=== PATIENT | male | born 1935 | race Caucasian/White ===

== ENCOUNTER 2016-11-16 12:33 | Emergency (ER) | payer BC, MEDICARE ==
[~2016-11-16] VITALS: Ht 177.8 cm; Wt 106.4 kg
[~2016-11-16 12:33] MED LIST: ALFU1TAB10 PO; ALPR0.5T99 PO; ALTA1.256 PO; BUFF325T PO; CLON.5 PO; GLUCTAB PO; NEUR100C PO; REME30TA PO; ROSU20 PO; STOO100C PO
[2016-11-16 12:36] VITALS: BP 137/82; PULSE 78; RESP 16; TEMP 97.3; O2SAT 96
[2016-11-16] MEDS ORDERED: SODIUM CHLORIDE 0.9% FLUSH 5 ML FLUSH IVF PRN (13:00)
[2016-11-16] MEDS ORDERED: methylPREDNISolone SOD SUCC 125 MG/2 ML VIAL IVP ONE (13:00)
--- NOTE | 2016-11-16 13:02 | PD ---
HPI . Right ear pain. Chief Complaint: Respiratory Symptoms Time Seen by Provider: 12:46 Travel History International Travel<30 days: No Contact w/Intl Traveler<30days: No Traveled to known affect area: No History of Present Illness HPI The patient presents with a chief complaint of right ear pain. Patient reports cold symptoms for about a week. He has subsequently developed ear pain and was seen at urgent care 4 days ago. He was placed on amoxicillin. Despite this, his ear pain is getting worse rather than better. He is also complaining with rhinorrhea or throat and cough. He does have yellow sputum production. He feels very fatigued. He has not been running any fever. In addition to the amoxicillin, he has been taking Robitussin. PFSH Past Medical History Hx Anticoagulant Therapy: Yes (plaxix) Anxiety: Yes Cancer: No Cardiovascular Problems: Yes (htn on meds, has a pacemake, bypass 5 vessels) High Cholesterol: Yes Cerebrovascular Accident: Yes Coronary Artery Disease: Yes Diabetes: Yes (type 2) Diminished Hearing: No Endocrine: Yes GERD: Yes Genitourinary: Yes (HAS HX OF KIDNEY STONES) Hypertension: Yes Immune Disorder: No Kidney Stones: Yes Musculoskeletal: No Psychiatric: No Past Surgical History Appendectomy: Yes Cardiac Surgery: Yes (PACEMAKER 10/11) Coronary Artery Bypass Graft: Yes (5 VESSEL 12/12) Eye Surgery: Yes Pacemaker: Yes Tonsillectomy: Yes Social History Alcohol Use: Yes (SOCIALLY) Tobacco Use: Yes (ONE CIGAR A DAY) Substance Use: No Allergies-Medications (Allergen,Severity, Reaction): Coded Allergies: Demerol (Verified Adverse Reaction, Severe, "Shallow breathing", 11/16/16) Reported Meds & Prescriptions Reported Meds & Active Scripts Active Reported Tramadol (Tramadol HCl) 50 Mg Tab 50 Mg PO Q8H PRN Flonase Allergy Relief Nasal Mccarr (Fluticasone Nasal Mccarr) 50 Mcg/Act Mccarr 50 Mcg EACH NARE DAILY Tylenol Pm Extra Strength (Diphenhydramine-Acetaminophen) 25-500 Mg Tab 1 Tab PO HS Xanax (Alprazolam) 1 Mg Tab 1 Mg PO HS Zestril (Lisinopril) 10 Mg Tab 10 Mg PO DAILY Proscar (Finasteride) 5 Mg Tab 5 Mg PO DAILY Do not crush. Rapaflo (Silodosin) 8 Mg Cap 8 Mg PO DAILY Colace (Docusate Sodium) 100 Mg Cap 2 Cap PO DAILY Crestor (Rosuvastatin Calcium) 10 Mg Tab 10 Mg PO DAILY [Chucky Red] 1,000 Mg PO DIRECTED Glucophage (Metformin HCl) 500 Mg Tab 500 Mg PO BIDPC With meals Vitamin D (Cholecalciferol) 400 Unit/Ml Drops 400 Units PO DAILY Ecotrin Low Strength (Aspirin) 81 Mg Tabdr 81 Mg PO DAILY Plavix (Clopidogrel Bisulfate) 75 Mg Tab 75 Mg PO DAILY Review of Systems Except as stated in HPI: all other systems reviewed are Neg General / Constitutional: Positive: Other (fatigue), No: Fever, Chills HENT: Positive: Sore Throat, Rhinorrhea, Congestion, Earache Respiratory: Positive: Cough, Shortness of Breath, Wheezing, Other (yellow sputum) Physical Exam Narrative GENERAL: Healthy-appearing 81-year-old man who is in no acute distress. SKIN: Warm and dry. HEAD: Atraumatic. Normocephalic. EYES: Pupils equal and round. ENT: No nasal bleeding or discharge. Mucous membranes pink and moist. I cannot clearly see his right TM. I can see some redness. He has some mild pain with movement of the right auricle and compression of the right tragus. NECK: Trachea midline. No cervical lymphadenopathy palpated. CARDIOVASCULAR: Regular rate and rhythm. Heart sounds are normal. RESPIRATORY: No accessory muscle use. Lungs have good air movement throughout but diffuse expiratory wheezing. GASTROINTESTINAL: Abdomen soft, non-tender, nondistended. MUSCULOSKELETAL: No obvious deformities. No edema. NEUROLOGICAL: Awake and alert. No obvious cranial nerve deficits. Motor grossly within normal limits. Normal speech. PSYCHIATRIC: Appropriate mood and affect; insight and judgment normal. Data Data Last Documented VS Vital Signs Date Time Temp Pulse Resp B/P Pulse Ox O2 Delivery O2 Flow Rate FiO2 11/16/16 13:45 85 16 133/65 96 Room Air 11/16/16 12:36 97.3 Orders Complete Blood Count With Diff (11/16/16 12:54) Basic Metabolic Panel (Bmp) (11/16/16 12:54) B-Type Natriuretic Peptide (11/16/16 12:54) Troponin I (11/16/16 12:54) Iv Access Insert/Monitor (11/16/16 12:54) Chest, Single Ap (11/16/16 12:54) Sodium Chloride 0.9% Flush (Ns Flush) (11/16/16 13:00) Methylprednisolone So Succ Inj (Solumedr (11/16/16 13:00) Albuterol-Ipratropium Neb (Duoneb Neb) (11/16/16 13:00) Labs Laboratory Tests Test 11/16/16 13:40 White Blood Count 9.7 TH/MM3 Red Blood Count 4.89 MIL/MM3 Hemoglobin 14.9 GM/DL Hematocrit 44.6 % Mean Corpuscular Volume 91.1 FL Mean Corpuscular Hemoglobin 30.4 PG Mean Corpuscular Hemoglobin 33.4 % Concent Red Cell Distribution Width 12.4 % Platelet Count 243 TH/MM3 Mean Platelet Volume 7.5 FL Neutrophils (%) (Auto) 55.4 % Lymphocytes (%) (Auto) 34.6 % Monocytes (%) (Auto) 6.7 % Eosinophils (%) (Auto) 2.6 % Basophils (%) (Auto) 0.7 % Neutrophils # (Auto) 5.2 TH/MM3 Lymphocytes # (Auto) 3.4 TH/MM3 Monocytes # (Auto) 0.7 TH/MM3 Eosinophils # (Auto) 0.3 TH/MM3 Basophils # (Auto) 0.1 TH/MM3 CBC Comment DIFF FINAL Differential Comment Sodium Level 144 MEQ/L Potassium Level 4.0 MEQ/L Chloride Level 107 MEQ/L Carbon Dioxide Level 28.6 MEQ/L Anion Gap 8 MEQ/L Blood Urea Nitrogen 17 MG/DL Creatinine 1.20 MG/DL Estimat Glomerular Filtration 58 ML/MIN Rate Random Glucose 140 MG/DL Calcium Level 8.6 MG/DL [facility] Medical Decision Making Medical Screen Exam Complete: Yes Emergency Medical Condition: Yes Differential Diagnosis Differential diagnosis includes but is not limited to influenza, upper respiratory infection, bronchitis, pneumonia Narrative Course Patient presents for evaluation and treatment of cold symptoms including right ear pain. I will evaluate him to rule out a more serious cause for his symptoms such as pneumonia, CHF. Chest x-ray is negative for infiltrate. The chest x-ray was independently viewed by me. CBC is normal. Electrolytes are normal. Troponin is 0.02 and his BNP is 29. His respiratory symptoms have improved with steroids and nebs. Diagnosis Primary Impression: Bronchitis Additional Impression: Right otitis media Qualified Code: H66.91 - Right otitis media, unspecified chronicity, unspecified otitis media type Scripts Hydrocodone-Acetaminophen (Andrews)5-325 mg Tab1-2 Tab PO Q6H PRN (PAIN) #12 TAB Ref 0 Prov:Mia Barnhart MD 11/16/16 Pseudoephedrine-Guaifenesin (Mucinex D Maximum Strength)120-1,200 Mg Tab1 Tab PO BID PRN (congestion) #20 Prov:Mia Barnhart MD 11/16/16 Amoxicillin-Clavulanate (Augmentin)875-125 mg [id number] Mg PO BID #20 TAB Ref 0 not for use in CrCl <30 ml/min. Prov:Mia Barnhart MD 11/16/16 Prednisone (48) 10 mg tab Dose Pack 10 Mg [id number] Mg PO DIRECTED #1 DSPK Ref 0 Prov:Mia Barnhart MD 11/16/16 Disposition: 01 DISCHARGE HOME Condition: Stable Mia Barnhart MD Nov 16, 2016 13:02
[2016-11-16] MEDS: RESP: ALBUTEROL 2.5 MG/IPRATROPIUM 0.5 MG NEB (SCH) INH ×2 (13:14→13:16)
--- NOTE | 2016-11-16 13:19 | RADHPO ---
EXAM DATE/TIME: 11/16/2016 12:59 [facility] COMPARISON: No previous studies available for comparison. INDICATIONS: Cough, congestion. MEDICAL HISTORY: Cardiovascular disease. SURGICAL HISTORY: Pacemaker. CABG. ENCOUNTER: Initial ACUITY: 1 week PAIN SCORE: 0/10 LOCATION: Bilateral chest FINDINGS: Median sternotomy wires are noted status post cardiac surgery. The heart is enlarged. A right subcl john multi-lead pacemaker has its tips in the right heart. The lungs are clear. No pulmonary edema is noted. CONCLUSION: 1. Cardiomegaly. 2. No acute focal pulmonary infiltrate or pulmonary vascular congestion. Cristino Bejarano MD on November 16, 2016 at 13:10 Board Certified Radiologist. This report was verified electronically.
[2016-11-16] MEDS ORDERED: Mega Red PO (13:20)
[2016-11-16] MEDS ORDERED: LISI-590 PO (13:20)
[2016-11-16] MEDS ORDERED: XANA1TAB2 PO (13:20)
[2016-11-16] MEDS ORDERED: PROS5TAB PO (13:20)
[2016-11-16] MEDS ORDERED: ASPI-147 PO (13:20)
[2016-11-16] MEDS ORDERED: COLA100C3 PO (13:20)
[2016-11-16] MEDS ORDERED: ROSU10 PO (13:20)
[2016-11-16] MEDS ORDERED: METF500 PO (13:20)
[2016-11-16] MEDS ORDERED: CHOL400D2 PO (13:20)
[2016-11-16] MEDS ORDERED: PLAV75TA29 PO (13:20)
[2016-11-16] MEDS ORDERED: DIPH1TAB36 PO (13:20)
[2016-11-16] MEDS ORDERED: RAPA8CAP PO (13:20)
[2016-11-16] MEDS ORDERED: TRAM50TA PO (13:21)
[2016-11-16] MEDS ORDERED: FLUT1SPR5 EACH NARE (13:21)
[2016-11-16 13:45] VITALS: BP 133/65; PULSE 85; RESP 16; O2SAT 96
[2016-11-16 13:48] LABS: AUTOMATED NEUTROPHIL # 5.2 TH/MM3 (1.8-7.7); BASOPHIL # 0.1 TH/MM3 (0-0.2); BASOPHIL % 0.7 % (0.0-2.0); EOSINOPHIL # 0.3 TH/MM3 (0-0.4); EOSINOPHIL % 2.6 % (0.0-4.0); HEMATOCRIT 44.6 % (39.0-51.0); HEMO FLAGS DIFF FINAL; LYMPH % 34.6 % (9.0-44.0); LYMPHOCYTE # 3.4 TH/MM3 (1.0-4.8); MEAN CELL VOLUME 91.1 FL (80.0-100.0); MEAN CORPUSCULAR HEMOGLOBIN 30.4 PG (27.0-34.0); MEAN CORPUSCULAR HGB CONC 33.4 % (32.0-36.0); MONO % 6.7 % (0.0-8.0); NEUT % 55.4 % (16.0-70.0); PLATELET COUNT 243 TH/MM3 (150-450); RED BLOOD COUNT 4.89 MIL/MM3 (4.50-5.90); RED CELL DISTRIBUTION WIDTH 12.4 % (11.6-17.2); WHITE BLOOD COUNT 9.7 TH/MM3 (4.0-11.0)
[2016-11-16 13:56] LABS: BICARBONATE 28.6 MEQ/L (21.0-32.0)
[2016-11-16] MEDS ORDERED: AUGM875T PO (14:11)
[2016-11-16] MEDS ORDERED: PRED10PA2 PO (14:11)
[2016-11-16] MEDS ORDERED: MUCI120T PO (14:11)
[2016-11-16] MEDS ORDERED: NORC5TAB PO (14:12)
== END 2016-11-16 14:35 | disposition home or self-care (01) ==
LOC: PHED 12:33
DX: J40 Bronchitis, not specified as acute or chronic (principal); H66.91 Otitis media, unspecified, right ear; I10 Essential (primary) hypertension; E78.00 Pure hypercholesterolemia, unspecified; E11.9 Type 2 diabetes mellitus without complications; Z72.0 Tobacco use; Z79.4 Long term (current) use of insulin; Z79.01 Long term (current) use of anticoagulants
CPT/HCPCS: 71010; 80048; 83880; 84484; 85025; 94640; 94664; 96374; 99283; J2930